=== PATIENT | male | born 1970 ===

== ENCOUNTER → 2019-01-06 20:13 | Outpatient (REF) | payer OTHER, SELFPAY ==
[2019-01-06 20:32] LABS: Alanine Aminotransferase 17 IU/L (21-72); Albumin 5.1 g/dL (3.5-5.0); Albumin Globulin Ratio 1.6 (1.0-2.8); Alkaline Phosphatase 68 U/L (38-126); Aspartate Aminotransferase 25 IU/L (17-59); Bilirubin Total 0.8 mg/dL (0.2-1.3); Blood Urea Nitrogen 16 mg/dL (9-20); Calcium 9.9 mg/dL (8.4-10.2); Carbon Dioxide 24 mmol/L (22-32); Chloride 104 mmol/L (98-107); Cholesterol 269 mg/dL (140-199); Estimated Glomerular Filt Rate > 60.0 mL/min (>60); Globulin 3.2 g/dL (1.7-4.1); Glucose 108 mg/dL (70-100); HDL Cholesterol 82 mg/dL (40-60); HEMOLYSIS 20 (0-50); LDL Cholesterol Calculated 167 mg/dL (<100); Potassium 4.5 mmol/L (3.4-5.1); Sodium 141 mmol/L (137-145); Total Protein 8.3 g/dL (6.3-8.2); Triglycerides 98 mg/dL (35-150)
[2019-01-06 21:03] LABS: Thyroid Stimulating Hormone 0.61 uIU/mL (0.47-4.68)
== END ==
LOC: LAB 20:13
PROVIDERS: Visit Provider Family Medicine
DX: E03.9 Hypothyroidism, unspecified (principal); Z13.6 Encounter for screening for cardiovascular disorders; Z13.1 Encounter for screening for diabetes mellitus; Z13.228 Encounter for screening for other metabolic disorders
CPT/HCPCS: 36415; 80053; 80061; 84443